=== PATIENT | male | born 1945 | race Caucasian/White ===

== ENCOUNTER 2020-01-15 20:36 | Emergency (ER) | payer OTHER ==
[~2020-01-15] VITALS: Ht 180.3 cm; Wt 74.8 kg
[~2020-01-15 20:36] MED LIST: ASMANEX220 MCG INH; ASPIRIN81 M1 PO; CARDIZEM120 MG PO; CLOPIDOGREL75 MG PO; CRESTOR20 MG PO; FORADIL AERO0.012 MG IH; FORADIL AERO0.012 MG INH; INHALER INH; MEDROL DOSEPAK4 MG PO; METOPROLOL SR25 MG PO; MOMETASONE INH; NITROSTAT0.4 MG SL; PLAVIX75 MG PO; SIMVASTATIN40 MG PO; ZANTAC150 MG PO
== END 2020-01-16 01:22 | disposition home or self-care (01) ==
LOC: ED 20:36
DX: K59.00 Constipation, unspecified (principal); J44.9 Chronic obstructive pulmonary disease, unspecified; Z79.899 Other long term (current) drug therapy